=== PATIENT | male | born 1930 | race Caucasian/White ===

== ENCOUNTER 2018-01-11 12:24 | Day surgery (SDC) | payer OTHER ==
[~2018-01-11 12:24] MED LIST: CHLORHEXIDINE 0.12% 15 ML MOUTHWASH. SWSP; LIDOCAINE 1% PF 2 ML VIAL. ID; MORPHINE SULFATE 2 MG/ML DISP.SYRIN. IV; ONDANSETRON PF 4 MG/2 ML VIAL. IV; ceFAZolin 2GM PREMIX 2 GM/50 ML BAG IV; fentaNYL PF VIAL 100 MCG/2 ML VIAL IV
[2018-01-11 13:19] LABS: POC GLUCOSE 117 mg/dL (70-99)
[2018-01-11] MEDS: IV RINGERS,LACTATED 1000ML 1,000 ML IV ×2 (13:22)
[2018-01-11] MEDS: CHLORHEXIDINE 0.12% 15 ML MOUTHWASH. SWSP ×2 (13:28)
[2018-01-11] MEDS ORDERED: OXYMETAZOLINE 0.05% NASAL SPRAY 30ML BOTTLE. NS ×2 (13:45)
[2018-01-11] MEDS ORDERED: ROCURONIUM 50 MG/5 ML VIAL. ×2 (13:50)
[2018-01-11] MEDS ORDERED: PROPOFOL 20 ML IV ×2 (13:50)
[2018-01-11] MEDS ORDERED: ONDANSETRON PF 4 MG/2 ML VIAL. ×2 (13:50)
[2018-01-11] MEDS ORDERED: fentaNYL PF VIAL 100 MCG/2 ML VIAL ×4 (13:50→17:15)
[2018-01-11] MEDS ORDERED: DEXAMETHASONE SOD PHOS 20 MG/5 ML VIAL. ×2 (13:50)
[2018-01-11] MEDS ORDERED: LIDOCAINE 2% PF Vial for OR 5 ML VIAL. ×2 (13:50)
[2018-01-11] MEDS: BUPIVACAINE-EPI 0.25%-1:200000 50 ML VIAL. ×2 (15:31)
[2018-01-11] MEDS: GELATIN SPONGE SIZE 100. ×2 (15:31)
[2018-01-11] MEDS ORDERED: PHENYLEPHRINE in 0.9% NACL PF 1 MG/10 ML SYRINGE. IV (15:45)
[2018-01-11] MEDS ORDERED: ePHEDrine PF IN SALINE 50 MG/5 ML DISP.SYRIN IV (16:03)
[2018-01-11] MEDS ORDERED: SEVOFLURANE 61 TO 120 MINUTES. IH ×2 (16:10)
[2018-01-11] MEDS ORDERED: GLYCOPYRROLATE 1 MG/5 ML VIAL. ×2 (16:10)
[2018-01-11] MEDS ORDERED: PROCHLORPERAZINE 10 MG/2 ML VIAL. ×2 (17:15)
[2018-01-11] MEDS: fentaNYL PF VIAL 100 MCG/2 ML VIAL IV ×4 (17:49→18:00)
[2018-01-11] MEDS: PROCHLORPERAZINE 10 MG/2 ML VIAL. IV ×2 (17:49)
== END 2018-01-11 18:44 | disposition home or self-care (01) ==
LOC: SURG 12:24
DX: K02.9 Dental caries, unspecified (principal); K05.6 Periodontal disease, unspecified; Z79.899 Other long term (current) drug therapy; Z98.41 Cataract extraction status, right eye; Z98.42 Cataract extraction status, left eye; Z86.69 Personal history of other diseases of the nervous system and sense organs; Z87.39 Personal history of other diseases of the musculoskeletal system and connective tissue; Z86.39 Personal history of other endocrine, nutritional and metabolic disease
CPT/HCPCS: 41874; 82962; J0690; J0780; J1100; J2370; J2405; J2704; J3010; J3490